=== PATIENT | female | born 2000 | race Caucasian/White ===

== ENCOUNTER 2020-05-31 06:34 | Emergency (ER) | payer OTHER, SELFPAY ==
[2018-06-26 18:41] VITALS: BMI 29.0
[2020-05-31 06:38] VITALS: BP 145/87; PULSE 78; RESP 20; TEMP 36.9; O2SAT 100; BMI 28.7
--- NOTE | 2020-05-31 06:47 | RAD_ITS ---
STUDY: X-RAY - ACUTE ABDOMINAL SERIES REASON FOR EXAM: Female, 19 years old. ABD PAIN AND A LOT OF VOMITING. HX OF GASTROPERESIS TECHNIQUE: Single view of the chest. Supine, and erect view(s) of the abdomen were obtained. COMPARISON: None. FINDINGS: The lungs are clear and expanded. Normal size heart. Normal mediastinum and santosh. Normal visualized pulmonary arteries. Normal visualized aortic arch and descending thoracic aorta. There is a non-specific bowel gas pattern. There are multiple calcified phleboliths. Normal visualized osseous structures. RAD/Acute Abdomen Inc Chest IMPRESSION: Normal x-ray examination of the chest, abdomen, and pelvis. Electronically Signed: Khadra Milner MD at 7:31 EST Tel , Service support ,
--- NOTE | 2020-05-31 06:48 | ED.DCSUM_ITS ---
History of Present Illness Chief Complaint: Constipation Informant: Patient Onset: Days Context: Gradual Onset Timing: Continuous Current Severity: Moderate Maximum Severity: Moderate Narrative: The patient is a 19-year-old female with history of irritable bowel and chronic constipation who presents to the emergency department with worsening constipation and dysuria. Patient states normally, she will have a bowel movement approximately every 5 days. She states that she has not had one for the past 10 days. She is on MiraLAX daily. She states she is begun to have some nausea and vomiting. She is also had dysuria. She denies any tyler abdominal pain. She does admit to some tightness in her low back. She denies any fevers or chills. She has no history of prior abdominal surgery. She is otherwise been in her normal state of health. Prior similar symptoms: Yes Recent Illness/Hospitalization: No Past Medical History - Allergies and Home Meds Allergies/Adverse Reactions: Allergies No Known Allergies Allergy (Verified 05/31/20 06:36) Primary Care Physician: Mariola Hanna MD [Primary Care Provider] - Prior records reviewed: Yes Past Medical History: - - GERD Surgical History: noncontributory Smoking Status: Current every day smoker Review of Systems General: Denies: Chills, Fever, Sweats Eyes: Denies: Visual changes - bilaterally, Diplopia ENT: Denies: Rhinorrhea, Sore throat Cardiovascular: Denies: Chest pain, Palpitations Respiratory: Denies: Dyspnea, Cough, Dyspnea on exertion Gastrointestinal: Reports: Nausea, Vomiting, Constipation. Denies: Abdominal pain, Diarrhea, Melena, Hematochezia Genitourinary: Denies: Dysuria, Hematuria, Frequency Musculoskeletal: Denies: Back pain, Extremity Pain Skin: Denies: Rash, Wounds Neurological: Denies: Headache, Weakness, Numbness Physical Exam Vital Signs/Narrative: Vital Signs Temp Pulse Resp BP Pulse Ox 05/31/20 06:38 98.5 F 78 20 H 145/87 H 100 Inital Vital Signs reviewed: Yes General: Well nourished, Well developed, No Acute Distress Head: Normocephalic, Atraumatic Eyes: Perrl, EOMI ENT: Moist mucous membranes, No rhinorrhea Neck: Supple, Nontender Cardiovascular: Regular rate, Regular rhythm, No murmurs Respiratory: No distress, CTA bilaterally, Chest nontender Abdomen: Soft, Nontender, Nondistended, Normal bowel sounds Back: Nontender, Normal Inspection Extremities: Nontender, No edema Skin: Normal color, No rash Neurological: Alert, Oriented x3, Cranial nerves II-XII grossly intact, Normal Strength, Normal Sensation Psychological: Normal affect, Normal Mood Diagnostic/Tx/Re-eval Clinical Impression(s) from Imaging Studies Acute Abdomen Series 05/31/20 06:47 IMPRESSION: Normal x-ray examination of the chest, abdomen, and pelvis. Electronically Signed: Khadra Milner MD at 7:31 EST Tel , Service support , Abnormal Lab Results 05/31/20 05/31/20 05/31/20 07:00 07:00 07:50 WBC 4.5 RBC 4.48 Hgb 14.0 Hct 40.3 MCV 90.0 MCH 31.3 MCHC 34.7 RDW Std Deviation 42.5 RDW Coeff of Rakan 12.9 Plt Count 249 MPV 8.9 Immature Gran % (Auto) 0.200 Neut % (Auto) 40.8 L Lymph % (Auto) 44.9 H [place] % (Auto) 9.7 Eos % (Auto) 3.5 Baso % (Auto) 0.9 Absolute Neuts (auto) 1.9 L Absolute Lymphs (auto) 2.04 Nucleated RBC % 0 Sodium 141 Potassium 3.8 Chloride 111 H Carbon Dioxide 25.0 Anion Gap 5 BUN 13 Creatinine 0.73 Estim Creat Clear Calc 118.55 Est GFR (MDRD) Af Amer 129 Est GFR (MDRD) Non-Af 107 BUN/Creatinine Ratio 17.8 Glucose 89 Calcium 8.9 Urine Color Yellow Urine Clarity Clear Urine pH 7.0 Ur Specific [place] 1.015 Urine Protein 15 H Urine Glucose (UA) Normal Urine Ketones 5 H Urine Occult Blood Negative Urine Nitrite Negative Urine Bilirubin Negative Urine Urobilinogen 8 H Ur Leukocyte Esterase 100 H Urine RBC 0 SEEN Urine WBC 0-5 SEEN Ur Squamous Epith Cells 5-10 SEEN Urine Bacteria 3+ Urine Mucus 1+ Urine Test Negative - Medical Decision Making The patient presents with worsening constipation with chronic history of constipation. Her abdomen is soft and nontender. Metabolic evaluation was performed. Labs are unremarkable. Plain films were obtained reviewed by both myself and the radiologist. There is stool burden, but no evidence of obstruction or free air. The patient is resting comfortably after fluids. Urine was obtained. There is some evidence of infection and the patient will be treated. At this point, I am going to treat the patient with magnesium citrate and add Colace. She will continue her MiraLAX twice a day. She will be discharged home. Impression 1. Constipation 2. Cystitis ED Disposition - Plan for ED Patient: Instructions: ED Constipation (Adult) Prescriptions: Docusate Sodium [Colace] 100 mg PO DAILY #20 cap Prescription Printed Nitrofurantoin Macrocrystals [Macrobid] 100 mg PO Q12 #14 cap Prescription Printed Referrals: Mariola Hanna MD [Primary Care Provider] - Additional Instructions: Please take the magnesium citrate today. If still not having bowel movements, start taking your MiraLAX twice a day for the next 5 days.
[2020-05-31] MEDS: 0.9% Normal Saline 1,000 ML 1000 ML IV (06:58)
[2020-05-31] MEDS: Ondansetron 4 MG/2 ML Vial IV (06:58)
[2020-05-31 07:11] LABS: Absolute Lymphocyte Count 2.04 X10^3/uL (0.83-4.51); Absolute Neutrophil Count 1.9 X10^3/uL (2.0-7.7); Basophil# 0.04 X10^3/uL; Basophil% 0.9 % (0-1); Eosinophil# 0.16 X10^3/uL; Eosinophils% 3.5 % (0-5); Hematocrit 40.3 % (37-47); Lymphocyte # 2.04 X10^3/ul (4.0); Lymphocyte % 44.9 % (19-41); Mean Corp Hgb Conc 34.7 g/dL (32-36); Mean Corpuscular Hgb 31.3 pg (27.0-32.0); Mean Platelet Vol. 8.9 fl (6.2-12.0); Monocyte# 0.44 X10^3/uL; Monocyte% 9.7 % (0-10); NRBC Flagged by Analyzer 0 % (0-5); Neutrophil # 1.85 X10^3/uL (2.7-7.7); Neutrophil % 40.8 % (47-70); Platelet Count 249 K/mm3 (150-450); RBC Distribution Width CV 12.9 % (11.6-14.6); RBC Distribution Width SD 42.5 fl (35.1-43.9); Red Blood Count 4.48 M/mm3 (4.2-5.4); White Blood Count 4.5 K/mm3 (4.4-11.0)
[2020-05-31 07:19] LABS: Anion Gap 5 (5-15); BUN 13 mg/dL (7-18); BUN/Creat Ratio 17.8 RATIO (10-20); Calcium,Total 8.9 mg/dL (8.5-10.1); Chloride 111 mmol/L (98-107); Creatinine, Serum 0.73 mg/dL (0.55-1.02); EST Glomerular Filtration Rate 107 mL/min (>60); Est Glom Filt Rate - Afr Amer 129 mL/min (>60); Estimated Creatinine Clearance 118.55 ml/min; Glucose 89 mg/dL (74-106); Potassium 3.8 mmol/L (3.5-5.1); Sodium Level 141 mmol/L (136-145)
[2020-05-31 07:57] LABS: Red Blood Cells-Urine 0 SEEN /hpf (0-5)
[2020-05-31 08:07] LABS: Color, Urine Yellow (Yellow); Glucose, Dipstick Normal (Normal); Ketone-Dipstick 5 mg/dl (Negative); Leukocyte Esterase-Dipstick 100 /ul (Negative); Nitrite-Dipstick Negative (Negative); Occult Blood-Urine Negative /ul (Negative); Protein-Dipstick 15 mg/dl (Negative); Specific Gravity, Urine 1.015 (1.002-1.030); Urine Bilirubin Dipstick Negative (Negative); Urine Clarity Clear (Clear); Urine Urobilinogen 8 mg/dl (Normal)
[2020-05-31 08:10] LABS: Internal QC Validated? YES +Cl - CLEAR BKGD; Pregnancy, Urine Negative Negative
[2020-05-31 08:19] LABS: Bacteria 3+ /hpf (None Seen); Mucous, Urine 1+ /hpf (<or=2+); Squamous Epithelial Cells - UA 5-10 SEEN /hpf (5-10); White Blood Cells 0-5 SEEN /hpf (0-5)
[2020-05-31 08:21] VITALS: BP 134/80; PULSE 78; RESP 16; O2SAT 98
[2020-05-31] MEDS: Nitrofurantoin Macrocrystals 100 MG Capsule PO (08:49)
[2020-05-31] MEDS: Magnesium Citrate 300 ML PO (08:49)
== END 2020-05-31 08:55 | disposition home or self-care (01) ==
LOC: ED 07:19
PROVIDERS: Emergency Provider Emergency Medicine; PCP Pediatrics
DX: K59.09 Other constipation (principal); N30.90 Cystitis, unspecified without hematuria; K58.9 Irritable bowel syndrome, unspecified; K21.9 Gastro-esophageal reflux disease without esophagitis; F17.200 Nicotine dependence, unspecified, uncomplicated; Z79.899 Other long term (current) drug therapy
CPT/HCPCS: 74022; 80048; 81001; 81025; 85025; 96361; 96374; 99282; J7030; A4216; J2405

== ENCOUNTER 2020-11-02 17:13 | Outpatient (RCR) | payer OTHER, SELFPAY ==
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
--- NOTE | 2020-12-12 13:30 | HP.PT.NRP ---
ELPIDIO RICE was seen in my office for initial evaluation on 11/02/20. The following Plan of Care was established for this patient: Initial Frequency: 2x /Week Initial Duration: 6 Weeks Patient/Client Instruction: Educate patient on: Condition, Plan of Care For the Purpose of:: To decrease pain, To decrease swelling/inflammation, To increase ROM, To improve nutrient delivery to tissue, To improve muscle performance and motor function, To improve ability to perform ADL's, To increase tolerance to activity/condition/position, To improve performance and independence with ADL's, To improve ability of physical actions for home/community/work/leisure, To improve health of tissue, To decrease soft tissue restriction, To increase flexibility/ROM, To improve endurance, To improve balance Therapeutic Exercise to Include: Strength training, Endurance training, Balance training, Body mechanics, Postural training, Flexibilty training, Gait and locomotor training, Passive ROM, Active ROM For the Purpose of:: To decrease pain, To decrease swelling/inflammation, To increase ROM, To improve nutrient delivery to tissue, To improve muscle performance and motor function, To improve ability to perform ADL's, To increase tolerance to activity/condition/position, To improve performance and independence with ADL's, To improve gait and locomotor functions, To improve health of tissue, To decrease soft tissue restriction, To increase flexibility/ROM, To improve balance Functional Training to Include: Gait training For the Purpose of:: To improve gait and locomotor functions Manual Therapy Techniques to Include: Passive ROM, Soft tissue mobilization For the Purpose of:: To decrease pain, To increase ROM, To improve nutrient delivery to tissue This patient was last seen in our office . Pertinent comments regarding their Physical therapy will appear below: At this point I will be discontinuing this patient from physical therapy. I would be happy to see this patient again in the future if found appropriate by the physician. Thank you! Michelle Calle, RUBEN Balance/Gait/Functional tests - Balance/Special Test Scores Lower Extremity Functional Score: 23
== END 2020-11-02 19:00 | disposition home or self-care (01) ==
LOC: PT 17:13
PROVIDERS: PCP Pediatrics
DX: M76.72 Peroneal tendinitis, left leg (principal)
CPT/HCPCS: 97161

== ENCOUNTER → 2020-11-03 11:26 | Outpatient (CLI) | payer OTHER, SELFPAY ==
--- NOTE | 2020-11-03 11:30 | RAD_ITS ---
STUDY: X-RAY CHEST REASON FOR EXAM: Female, 20 years old. CHEST PAIN TECHNIQUE: 2 views COMPARISON: 05/31/2020 FINDINGS: The lungs are clear and expanded. There is no demonstrated pleural abnormality. Normal size heart. Normal mediastinum and santosh. Normal visualized pulmonary arteries. Normal visualized aortic arch and descending thoracic aorta. Normal visualized thoracic spine. Normal visualized ribs, clavicles, and shoulders. There is no demonstrated abnormality of the visualized soft tissue structures of the upper abdomen. RAD/Chest PA and Lateral IMPRESSION: Normal x-ray examination of the chest unchanged since the May 2019. Electronically Signed: Dustin Pinto, at 12:30 EDT Tel , Service support ,
== END ==
LOC: RAD 11:28
PROVIDERS: PCP Pediatrics; Referring Provider Internal Medicine; Visit Provider Internal Medicine
DX: R07.9 Chest pain, unspecified (principal)
CPT/HCPCS: 71046

== ENCOUNTER 2021-04-03 14:35 | Emergency (ER) | payer OTHER, SELFPAY ==
[2021-04-03 14:35] VITALS: BP 146/81; PULSE 80; RESP 16; TEMP 36.6; O2SAT 99; BMI 28.0
--- NOTE | 2021-04-03 15:42 | CT_ITS ---
EXAM: CT ABDOMEN AND PELVIS WITH INTRAVENOUS CONTRAST CLINICAL INDICATION: Right lower quadrant abdominal pain -- TECHNIQUE: Helically acquired images were obtained of the abdomen and pelvis with intravenous contrast. This CT exam was performed using one or more of the following dose reduction techniques: automated exposure control, adjustment of the mA and/or kV according to patient size, and/or use of iterative reconstruction technique. This report was created using [employer] report generation technology. CONTRAST: 100 mL Isovue-300 COMPARISON: None. FINDINGS: LOWER THORAX: Unremarkable. Lung bases are clear. No cardiomegaly. No significant pericardial effusion. ABDOMEN: LIVER: Unremarkable. Homogeneous. No focal mass. GALLBLADDER AND BILE DUCTS: Unremarkable. No calcified gallstones. No gallbladder distention or wall edema. No intra- or extrahepatic biliary ductal dilation. PANCREAS: Unremarkable. No focal cystic or solid mass. SPLEEN: Unremarkable. Normal size without focal cystic or solid mass. ADRENALS: Unremarkable. No nodules. KIDNEYS AND URETERS: Unremarkable. Normal renal size and position. No hydronephrosis. STOMACH AND BOWEL: Unremarkable. No stomach or bowel distention. No focal inflammatory change. PELVIS: APPENDIX: No evidence of acute appendicitis. BLADDER: Unremarkable. REPRODUCTIVE: Unremarkable as visualized. No mass. ABDOMEN and PELVIS: INTRAPERITONEAL SPACE: Unremarkable. No ascites or other fluid collection. No free air. BONES/JOINTS: Unremarkable. No suspicious lytic or blastic abnormality. SOFT TISSUES: Unremarkable. No discrete abdominal or pelvic wall hernia. VASCULATURE: Unremarkable. Abdominal aorta is non-dilated. LYMPH NODES: Unremarkable. No enlarged lymph nodes. CT/Abdomen/Pelvis WITH Contrast IMPRESSION: Negative CT of the abdomen and pelvis with intravenous contrast. Electronically Signed: Fernando Vicente MD ([place]) at 17:44 EST , Service support ,
--- NOTE | 2021-04-03 15:44 | EDS_ITS ---
HPI HPI - GI History of Present Illness Chief Complaint: Abd Pain Informant: patient Abdominal Pain/Flank Pain Onset: Yesterday Context: Gradual Onset Timing: Continuous Quality: Dull and Sharp Location: RUQ and RLQ Worsened by: - (Coughing, bending forward) Relieved by: Nothing Nausea/Vomiting/Emesis GI Symptom: Positive for Nausea and Vomiting Quality: Negative for Blood streaks, Coffee ground and Hematemesis Diarrhea/Melena/Hematochezia GI Symptom: Positive for Diarrhea; Negative for Melena and Hematochezia Associated Symptoms Associated Symptoms: Negative for Dysuria, Frequency and Hematuria Narrative Narrative: Patient presents with abdominal pain that began yesterday. Patient states she had some nausea and vomiting over the past couple of days. Patient states her pain started yesterday. Patient states the pain is over the right lower quadrant and right upper quadrant. Patient describes her pain is constant dull but sharp at times. Patient states it is worse with any bending or coughing. Patient states nothing seems to help with it. Patient admits to some nausea and vomiting. Patient denies any hematemesis or coffee-ground emesis. Patient also admits to some diarrhea but denies any melena or hematochezia. Patient denies any dysuria or hematuria. [facility] Medical History Asthma Home Medications NK 04/03/21 [History Last Taken Unknown] Allergy/AdvReac Type Severity Reaction Status Date / Time No Known Allergies Allergy Verified 04/03/21 14:36 Surgical History H/O foot surgery H/O wrist surgery Hx of tonsillectomy Social History Smoking Status: Never smoker ROS ROS ED Constitutional Constitutional ED: Denies chills or fever(s) Eyes Eyes: Denies blurry vision or change in vision ENT ENT ED: Denies rhinorrhea or sore throat Cardiovascular Cardiovascular: Denies chest pain or palpitations Respiratory/Chest Respiratory/Chest: Denies cough or dyspnea Gastrointestinal Gastrointestinal: Reports abdominal pain, diarrhea, nausea and vomiting Genitourinary Genitourinary ED: Denies dysuria or hematuria Musculoskeletal Musculoskeletal: Reports back pain; Denies neck pain Integumentary Denies abscess or rash Neurologic Neurologic: Denies headache(s) or weakness Allergic/Immunologic Allergic/Immunologic ED: Denies mouth swelling or urticaria EXAM Physical Exam Const Vital Signs: 04/03/21 14:35 04/03/21 16:51 Temperature 97.8 F Temperature Source Temporal Pulse Rate 80 Respiratory Rate 16 16 Blood Pressure 146/81 H Blood Pressure Mean 102 Pulse Ox 99 Oxygen Delivery Method Room Air Positive well nourished and well developed General Appearance ED: well developed HEENT Reports moist mucous membranes Neck supple and no JVD Resp normal respiratory effort and clear to auscultation bilaterally Cardio regular rate, regular rhythm and no murmurs GI normal to inspection, nondistended, normoactive bowel sounds and non-distended Auscultation: normoactive bowel sounds Palpation: soft and tender RLQ and RUQ; Negative for guarding or rebound tenderness present Extremity normal to inspection and full ROM General Extremety ED: Negative for edema or tenderness General Extremity: Negative for edema Neuro oriented x3, CN's II-XII intact bilaterally and no sensory deficits noted Sensorium / Orientation: alert Motor Exam: strength 5/5 throughout Psych mental status grossly normal Skin no rashes or lesions noted MDM MDM MDM Narrative Medical decision making narrative: Patient was given IV fluids, morphine, and Zofran. CBC was within normal limits. Comprehensive metabolic profile was normal. Serum hCG was negative. Urinalysis does not show any evidence of urinary tract infection. There are 10-25 squamous epithelial cells consistent with contamination. CT scan of the abdomen and pelvis was obtained. There is no acute intra-abdominal abnormality. This was interpreted by the radiologist and reviewed by myself. Lab Data Attestation: I reviewed the patient's lab results. Labs: Laboratory Results - last 24 hr 04/03/21 04/03/21 04/03/21 14:45 14:50 14:50 WBC 5.9 RBC 4.17 L Hgb 12.7 Hct 37.3 MCV 89.4 MCH 30.5 MCHC 34.0 RDW Std Deviation 39.8 RDW Coeff of [place]akan 12.1 Plt Count 221 MPV 9.0 Immature Gran % (Auto) 0.200 Neut % (Auto) 49.4 Lymph % (Auto) 38.0 [place] % (Auto) 7.9 Eos % (Auto) 3.5 Baso % (Auto) 1.0 Absolute Neuts (auto) 2.9 Absolute Lymphs (auto) 2.25 Nucleated RBC % 0 Sodium 140 Potassium 3.8 Chloride 111 H Carbon Dioxide 25.0 Anion Gap 4 L BUN 11 Creatinine 0.73 Estim Creat Clear Calc 117.55 Est GFR (MDRD) Af Amer 129 Est GFR (MDRD) Non-Af 106 BUN/Creatinine Ratio 15.2 Glucose 92 Calcium 8.6 Total Bilirubin 0.40 AST 15 ALT 18 Alkaline Phosphatase 52 Total Protein 6.6 Albumin 3.4 Globulin 3.2 Albumin/Globulin Ratio 1.1 Serum , Qual Urine Color Yellow Urine Clarity Sl. Cloudy Urine pH 6.0 Ur Specific [place] 1.020 Urine Protein Negative Urine Glucose (UA) Normal Urine Ketones Negative Urine Occult Blood Negative Urine Nitrite Negative Urine Bilirubin Negative Urine Urobilinogen Normal Ur Leukocyte Esterase 25 H Urine RBC 0 SEEN Urine WBC 0-5 SEEN Ur Squamous Epith Cells 10-25 SEEN Urine Bacteria 1+ Urine Mucus 0 SEEN 04/03/21 14:50 WBC RBC Hgb Hct MCV MCH MCHC RDW Std Deviation RDW Coeff of Rakan Plt Count MPV Immature Gran % (Auto) Neut % (Auto) Lymph % (Auto) [place] % (Auto) Eos % (Auto) Baso % (Auto) Absolute Neuts (auto) Absolute Lymphs (auto) Nucleated RBC % Sodium Potassium Chloride Carbon Dioxide Anion Gap BUN Creatinine Estim Creat Clear Calc Est GFR (MDRD) Af Amer Est GFR (MDRD) Non-Af BUN/Creatinine Ratio Glucose Calcium Total Bilirubin AST ALT Alkaline Phosphatase Total Protein Albumin Globulin Albumin/Globulin Ratio Serum , Qual NEGATIVE Urine Color Urine Clarity Urine pH Ur Specific [place] Urine Protein Urine Glucose (UA) Urine Ketones Urine Occult Blood Urine Nitrite Urine Bilirubin Urine Urobilinogen Ur Leukocyte Esterase Urine RBC Urine WBC Ur Squamous Epith Cells Urine Bacteria Urine Mucus Radiography Diagnostic Testing: Clinical Impression(s) from Imaging Studies Abdomen/Pelvis CT 04/03/21 15:42 IMPRESSION: Negative CT of the abdomen and pelvis with intravenous contrast. Electronically Signed: Fernando Vicente MD ([place]) at 17:44 EST , Service support , Discharge Plan Triage Chief Complaint: Abd Pain ED Provider: Max López Dx/Rx/DC Orders Clinical Impression: Right lower quadrant abdominal pain Instructions: ED Abdominal Pain Unkn Cause Fem Prescriptions: No Action NK RF: 0 Primary Care Provider: Mariola Hanna Referrals: Mariola Hanna MD [Primary Care Provider] - 3-5 Days Disposition Disposition: Home, Self Care
[2021-04-03] MEDS: Ondansetron 4 MG/2 ML Vial IV (15:57)
[2021-04-03] MEDS: Morphine 4 MG/ML Syringe IV (15:57)
[2021-04-03] MEDS: 0.9% Normal Saline 1,000 ML 1000 ML IV (15:58)
[2021-04-03 16:03] LABS: Absolute Lymphocyte Count 2.25 X10^3/uL (0.83-4.51); Absolute Neutrophil Count 2.9 X10^3/uL (2.0-7.7); Basophil# 0.06 X10^3/uL; Eosinophil# 0.21 X10^3/uL; Eosinophils% 3.5 % (0-5); Hematocrit 37.3 % (37-47); Hemoglobin 12.7 g/dL (12.0-15.0); Lymphocyte # 2.25 X10^3/ul (0.83-4.51); Mean Corpuscular Hgb 30.5 pg (27.0-32.0); Mean Corpuscular Volume 89.4 fL (81-99); Monocyte# 0.47 X10^3/uL; Monocyte% 7.9 % (0-10); NRBC Flagged by Analyzer 0 % (0-5); Neutrophil # 2.92 X10^3/uL (2.7-7.7); Neutrophil % 49.4 % (47-70); Platelet Count 221 K/mm3 (150-450); RBC Distribution Width CV 12.1 % (11.6-14.6); RBC Distribution Width SD 39.8 fl (35.1-43.9); Red Blood Count 4.17 M/mm3 (4.2-5.4); White Blood Count 5.9 K/mm3 (4.4-11.0)
[2021-04-03 16:06] LABS: Mucous, Urine 0 SEEN /hpf (<or=2+); Red Blood Cells-Urine 0 SEEN /hpf (0-5)
[2021-04-03 16:09] LABS: Color, Urine Yellow (Yellow); Glucose, Dipstick Normal (Normal); Ketone-Dipstick Negative (Negative); Leukocyte Esterase-Dipstick 25 /ul (Negative); Nitrite-Dipstick Negative (Negative); Occult Blood-Urine Negative /ul (Negative); Protein-Dipstick Negative (Negative); Urine Bilirubin Dipstick Negative (Negative); Urine Clarity Sl. Cloudy (Clear); Urine Urobilinogen Normal (Normal)
[2021-04-03 16:20] LABS: Bacteria 1+ /hpf (None Seen); Squamous Epithelial Cells - UA 10-25 SEEN /hpf (5-10); White Blood Cells 0-5 SEEN /hpf (0-5)
[2021-04-03 16:28] LABS: ALB/GLOB Ratio 1.1 RATIO (0.9-2.4); AST(SGOT) 15 U/L (15-37); Alanine Aminotransfer ALT/SGPT 18 U/L (13-56); Albumin, Serum 3.4 g/dL (3.2-5.0); Alkaline Phosphatase 52 U/L (45-117); Anion Gap 4 (5-15); BUN 11 mg/dL (7-18); BUN/Creat Ratio 15.2 RATIO (10-20); Calcium,Total 8.6 mg/dL (8.5-10.1); Chloride 111 mmol/L (98-107); Creatinine, Serum 0.73 mg/dL (0.55-1.02); EST Glomerular Filtration Rate 106 mL/min (>60); Est Glom Filt Rate - Afr Amer 129 mL/min (>60); Estimated Creatinine Clearance 117.55 ml/min; Globulin 3.2 g/dL (2.2-4.2); Glucose 92 mg/dL (74-106); Potassium 3.8 mmol/L (3.5-5.1); Protein, Total 6.6 g/dL (6.4-8.2); Sodium Level 140 mmol/L (136-145)
[2021-04-03 16:46] LABS: Internal QC Validated? YES +Cl - CLEAR BKGD; Pregnancy, Serum, hCG Quali. NEGATIVE Negative
[2021-04-03 16:51] VITALS: RESP 16
[2021-04-03 18:32] VITALS: BP 122/76; PULSE 97; RESP 16; O2SAT 98
== END 2021-04-03 18:34 | disposition home or self-care (01) ==
PROVIDERS: Emergency Provider Emergency Medicine; PCP Pediatrics
DX: R10.31 Right lower quadrant pain (principal); R10.11 Right upper quadrant pain; R11.2 Nausea with vomiting, unspecified; R19.7 Diarrhea, unspecified; J45.909 Unspecified asthma, uncomplicated
CPT/HCPCS: 74177; 80053; 81001; 84703; 85025; 96361; 96374; 96375; 99283; J7030; Q9967; A4216; J2405

== ENCOUNTER 2023-10-29 08:31 | Emergency (ER) | payer BC, SELFPAY ==
[2023-10-29 08:31] VITALS: BP 147/101; PULSE 74; RESP 14; TEMP 36.3; O2SAT 98; BMI 33.9
--- NOTE | 2023-10-29 08:47 | ED.VIS.GI ---
HPI HPI - GI History of Present Illness Chief Complaint: GI Bleed Informant: patient Nausea/Vomiting/Emesis GI Symptom: Positive for Nausea and Vomiting Onset: Yesterday Severity: Mild Diarrhea/Melena/Hematochezia GI Symptom: Positive for Hematochezia; Negative for Diarrhea or Melena Onset: Today Severity: Mild Episodes: 1 Associated Symptoms Associated Symptoms: Negative for Dysuria, Frequency, Hematuria or Urgency Narrative Narrative: 23-year-old female history gastroparesis and gastritis. No prior abdominal surgeries has had prior upper and lower endoscopy. States yesterday she had nausea and vomiting. She passed out prior to having nausea and vomiting. But she has passed out before. Her boyfriend caught her. She did not injure herself. Denies any hematemesis. Said this morning she had 1 bowel movement with dark blood. Small amount. No prior history of GI bleed. She is on no blood thinners. Denies any rectal trauma or procedures recently. Her endoscopy was 2 to 3 years ago. Prior similar symptoms: No Recent Illness/Hospitalization: No PFSH PFSH Medical History Gastroparesis Asthma Home Medications ?Medication ?Instructions ?Recorded ?Last Taken ?Type ondansetron 4 mg disintegrating 4 mg PO Q6H PRN nausea and 10/29/23 Unknown Rx tablet vomiting #7 tabs Allergy/AdvReac Type Severity Reaction Status Date / Time No Known Allergies Allergy Verified 10/29/23 08:32 Surgical History H/O wrist surgery H/O foot surgery Hx of tonsillectomy Social History Smoking Status: Never smoker ROS ROS ED ROS Narrative Nausea and vomiting. No diarrhea. No constipation. No dysuria. No fever. Review of Systems ROS Unobtainable: Denies due to encephalopathy Constitutional Constitutional ED: Denies chills or fever(s) ENT ENT ED: Denies ear pain Cardiovascular Cardiovascular: Denies chest pain Respiratory/Chest Respiratory/Chest: Denies cough or dyspnea Gastrointestinal Gastrointestinal: Reports nausea and vomiting; Denies abdominal pain, constipation, diarrhea or melena Genitourinary Genitourinary ED: Denies dysuria or hematuria Musculoskeletal Musculoskeletal: Denies arthralgias Integumentary Denies abscess Neurologic Neurologic: Denies headache(s) Psychiatric Psychiatric: Denies anxiety Endocrine Endocrinology: Denies polydipsia Hematologic/Lymphatic Hematologic/Lymphatic: Denies easy bleeding Allergic/Immunologic Allergic/Immunologic ED: Denies mouth swelling, tongue swelling or urticaria EXAM Physical Exam Narrative Exam Narrative: 23-year-old female no acute distress. Vital signs stable afebrile. H EENT exam unremarkable. Mytrex members. Neck nontender no lymphadenopathy. Lungs clear to auscultation bilaterally. Heart regular rate and rhythm rate about 75 no murmur. Chest wall and ribs nontender. Abdomen soft nontender. Normal bowel sounds no peritoneal signs. Moving all 4 extremities. Calves nontender without edema or cords. No bruising. Neurologically she is awake and alert no focal motor deficits. Rectal exam done female nurse present in room. No external hemorrhoids or masses. Rectal exam normal tone. No gross blood currently no stool in rectal vault. Const Vital Signs: 10/29/23 08:31 Temperature 97.3 F L Temperature Source Temporal Pulse Rate 74 Respiratory Rate 14 Blood Pressure 147/101 H Blood Pressure Mean 116 Pulse Ox 98 Oxygen Delivery Method Room Air Positive well nourished and well developed; Negative for cachectic, contractures or unkempt General Appearance ED: well developed and NAD; Negative for unkempt, cachectic, contractures or pallor Nutritional Appearance: Negative for cachectic HEENT Reports moist mucous membranes normocephalic and atraumatic; Negative for trauma or tenderness Eyes PERRL and EOMs intact bilaterally General Eye ED: Negative for pale conjunctiva or scleral icterus Neck no lymphadenopathy, supple and no JVD General: Negative for tenderness Carotids: Negative for other Lymph Lymphatic: Negative for other Resp normal respiratory effort Effort and Inspection: Negative for respiratory distress Auscultation: Negative for rales, rhonchi or wheezes Cardio regular rate, regular rhythm, S1 normal heart sound, S2 normal heart sound and no murmurs Rate: Negative for bradycardia or tachycardic Rhythm: Negative for abnormal rhythm GI non-tender, non-distended and no masses Inspection: Negative for abdominal distention Auscultation: normoactive bowel sounds Palpation: soft; Negative for tender, guarding, rigid, pulsatile mass or rebound tenderness present Back/Spine no CVA tenderness General Back: Negative for CVA tenderness Cervical Spine: Negative for cervical spine tenderness Thoracic Spine / Upper Back: Negative for thoracic spinal tenderness Lumbar Spine / Lower Back: Negative for lumbar spinal tenderness Coccyx: Negative for other Extremity full ROM General Extremety ED: Negative for edema, tenderness or other findings General Extremity: Negative for edema or other findings Neuro CN's II-XII intact bilaterally and moves all extremities Sensorium / Orientation: alert, oriented to person, oriented to place and oriented to time; Negative for orientation impaired, confused, lethargic or stuporous Sensory Exam: No sensory level loss detected Motor Exam: strength 5/5 throughout Psych mental status grossly normal and thought process normal Appearance: Negative for unkempt Attitude: No agitated Mood & Affect: Negative for depressed, anxious or tearful Skin no wounds General Skin Exam: Negative for jaundice or pallor Lesions: no lesions Rashes: no rashes Trauma: Negative for abrasion Nails: Negative for discolored MDM MDM MDM Narrative Medical decision making narrative: 23-year-old female with nausea vomiting. Small amount of blood today per rectum but no gross blood or bleeding currently. Screening labs will be obtained. She did not want anything for nausea at this time. She will be given IV fluids for the nausea and vomiting. Abdomen is benign. Repeat exam at 10:15 AM patient doing well. Abdomen benign. She has not had any vomiting since she has been here. She is comfortable being discharged home. I think yesterday symptoms of nausea and vomiting were secondary to viral syndrome. Was she has no signs of blood loss today either on exam or labs. She will follow that up as an outpatient with her primary care physician. She will be written a prescription for Zofran off work today and tomorrow. History & Record Review Discussion w/independent historian: Patient Additional record(s) reviewed:: Prior inpatient record, Prior outpatient record, Prior ED visit and Prior labs Lab Data Attestation: I reviewed the patient's lab results. Lab results narrative: CBC normal. White count 7. H&H of 13.0 and 39. Platelets 236. Normal blood counts. She is not anemic. No signs of bleeding. Workers noted electrolytes show a gap of 6. Normal BUN is 16 and creatinine 0.7. Liver enzymes are normal. Labs: Laboratory Results - last 24 hr 10/29/23 08:53 WBC 7.3 RBC 4.34 Hgb 13.0 Hct 39.3 MCV 90.6 MCH 30.0 MCHC 33.1 RDW Std Deviation 41.7 RDW Coeff of Rakan 12.5 Plt Count 236 MPV 9.2 Immature Gran % (Auto) 0.300 Neut % (Auto) 55.0 Lymph % (Auto) 31.4 [place] % (Auto) 7.2 Eos % (Auto) 5.0 Baso % (Auto) 1.1 H Absolute Neuts (auto) 4.0 Absolute Lymphs (auto) 2.30 Nucleated RBC % 0 Sodium 138 Potassium 3.8 Chloride 108 H Carbon Dioxide 24.0 Anion Gap 6 BUN 16 Creatinine 0.78 Estim Creat Clear Calc 132.70 Est GFR (MDRD) Af Amer 116 Est GFR (MDRD) Non-Af 96 BUN/Creatinine Ratio 20.6 H Glucose 99 Calcium 8.8 Total Bilirubin 0.60 AST 24 ALT 21 Alkaline Phosphatase 57 Total Protein 7.2 Albumin 3.8 Globulin 3.4 Albumin/Globulin Ratio 1.1 Discharge Plan Triage Chief Complaint: GI Bleed ED Provider: Medardo Ceja Dx/Rx/DC Orders Clinical Impression: Nausea & vomiting, Viral syndrome, Rectal bleed Instructions: ED Lower GI Bleeding (Stable), ED Viral Syndrome (Adult) Prescriptions: New ondansetron 4 mg tablet,disintegrating 4 mg PO Q6H PRN (Reason: nausea and vomiting) Qty: 7 0RF Primary Care Provider: Eneida George Referrals: Eneida George, DO [Primary Care Provider] - As Needed Mariola Hanna MD [Non-Staff] - Activity Restrictions/Additional Instructions: Plenty of fluids and rest. Follow-up with your doctor if not improving. If you have continued bleeding and will need to do further evaluation of that. Zofran as needed for nausea. Off work today and tomorrow. Print Language: Arabic Disposition Disposition: Home, Self Care
[2023-10-29] MEDS: 0.9% Normal Saline (1000mL) 1,000 ML 999 ML IV (08:53)
[2023-10-29 09:06] LABS: Basophil# 0.08 X10^3/uL; Basophil% 1.1 % (0-1); Eosinophil# 0.37 X10^3/uL; Hematocrit 39.3 % (37-47); Lymphocyte % 31.4 % (19-41); Mean Corp Hgb Conc 33.1 g/dL (32-36); Mean Corpuscular Volume 90.6 fL (81-99); Mean Platelet Vol. 9.2 fl (6.2-12.0); Monocyte# 0.53 X10^3/uL; Monocyte% 7.2 % (0-10); NRBC Flagged by Analyzer 0 % (0-5); Neutrophil # 4.03 X10^3/uL (2.7-7.7); Platelet Count 236 K/mm3 (150-450); RBC Distribution Width CV 12.5 % (11.6-14.6); RBC Distribution Width SD 41.7 fl (35.1-43.9); Red Blood Count 4.34 M/mm3 (4.2-5.4); White Blood Count 7.3 K/mm3 (4.4-11.0)
[2023-10-29 09:31] LABS: ALB/GLOB Ratio 1.1 RATIO (0.9-2.4); AST(SGOT) 24 U/L (15-37); Alanine Aminotransfer ALT/SGPT 21 U/L (13-56); Albumin, Serum 3.8 g/dL (3.2-5.0); Alkaline Phosphatase 57 U/L (45-117); Anion Gap 6 (5-15); BUN 16 mg/dL (7-18); BUN/Creat Ratio 20.6 RATIO (10-20); Calcium,Total 8.8 mg/dL (8.5-10.1); Chloride 108 mmol/L (98-107); Creatinine, Serum 0.78 mg/dL (0.55-1.02); EST Glomerular Filtration Rate 96 mL/min (>60); Est Glom Filt Rate - Afr Amer 116 mL/min (>60); Globulin 3.4 g/dL (2.2-4.2); Glucose 99 mg/dL (74-106); Potassium 3.8 mmol/L (3.5-5.1); Protein, Total 7.2 g/dL (6.4-8.2); Sodium Level 138 mmol/L (136-145)
== END 2023-10-29 10:31 | disposition home or self-care (01) ==
PROVIDERS: Emergency Provider Emergency Medicine; PCP Family Medicine; Referring Provider Emergency Medicine; Visit Provider Emergency Medicine
DX: K62.5 Hemorrhage of anus and rectum (principal); B34.9 Viral infection, unspecified; R11.2 Nausea with vomiting, unspecified; J45.909 Unspecified asthma, uncomplicated
CPT/HCPCS: 80053; 85025; 96360; 99283; J7030; A4216